=== PATIENT | female | born 1965 | race African-American/Black ===

== ENCOUNTER 2017-10-10 11:52 | Day surgery (SDC) | payer OTHER ==
[2017-10-10] MEDS ORDERED: Propofol 200 MG/20 ML VIAL ONE (15:01)
[2017-10-10] MEDS ORDERED: Lidocaine 1% PF 5 ML VIAL ONE (15:01)
--- NOTE | 2017-10-10 17:47 | OP ---
PREOPERATIVE DIAGNOSIS: Colorectal cancer screening. PROCEDURE IN DETAIL: After informed consent was obtained, the patient was placed in the left lateral decubitus position. Anesthesia was administered per the Anesthesia Department. Forward-viewing end oscope was inserted into the rectum after perianal inspection and rectal exam were normal and passed to the cecum and into the ileum with ease. The ileum, ileocecal valve, and appendiceal orifice were normal. The prep was excellent. The ascending, transverse, descending, sigmoid and rectum were norm al except for left-sided diverticulosis coli. Two polyps were seen, one in the descending and rectum . These polyps were small and sessile. They were removed with cold and hot snare polypectomy. Retr oflexion in rectum was normal. ASSESSMENT: 1. Two colon polyps - status post polypectomy. 2. Left-sided diverticulosis coli. 3. Otherwise normal ileal colonoscopy. RECOMMENDATIONS: Await histopathology.
== END 2017-10-10 16:20 | disposition home or self-care (01) ==
LOC: SDC 11:52
PROVIDERS: ATTEND Internal Medicine Gastroenterology
PROC: 0DBP8ZX Excision of Rectum, Via Natural or Artificial Opening Endoscopic, Diagnostic (ICD-10-PCS; principal; 2017-10-10)
PROC: 0DBM8ZX Excision of Descending Colon, Via Natural or Artificial Opening Endoscopic, Diagnostic (ICD-10-PCS; principal; 2017-10-10)
DX: Z12.11 Encounter for screening for malignant neoplasm of colon (principal); K63.5 Polyp of colon; D12.3 Benign neoplasm of transverse colon; K57.30 Diverticulosis of large intestine without perforation or abscess without bleeding; J45.909 Unspecified asthma, uncomplicated; E66.01 Morbid (severe) obesity due to excess calories; Z79.890 Hormone replacement therapy; Z88.6 Allergy status to analgesic agent
CPT/HCPCS: 88305; J2001; J2704

== ENCOUNTER 2018-04-07 15:35 | Outpatient (CLI) | payer OTHER ==
--- NOTE | 2018-04-07 16:18 | RAD ---
LEFT RIBS TWO VIEWS: History: 52-year-old female with history of left sided rib pain following a fall on Saturday. FINDINGS: No evidence for overt rib fracture. No pleural effusion or pericardial effusion. Atherosclerotic ecta tic changes of the aorta. Minimal vertically oriented linear and parenchymal changes in the left infr ahilar region, possibly old. IMPRESSION: No evidence of acute rib fracture. No pneumothorax or pleural effusion. Atherosclerosis of the aorta. POS: [facility]IT[facility]
== END 2018-04-07 15:36 | disposition home or self-care (01) ==
LOC: SCSRAD 15:35
PROVIDERS: ATTEND Nurse Practitioner Family
DX: R07.81 Pleurodynia (principal); I70.0 Atherosclerosis of aorta